=== PATIENT | female | born 1950 | race Caucasian/White ===

== ENCOUNTER → 2019-08-26 | Outpatient (CLI) | payer MEDICARE ==
[2019-08-26 13:04] LABS: Basophils % (A) 1 %; Eosinophils # (A) 0.2 k/uL (0-0.7); Eosinophils % (A) 2 %; HGB 14.1 gm/dL (11.4-16.0); Lymphocytes # (A) 2.5 k/uL (1.0-4.8); Lymphocytes % (A) 32 %; MCH 28.3 pg (25.0-35.0); MCHC 32.1 g/dL (31.0-37.0); MCV 88.3 fL (80.0-100.0); Mean Platelet Volume 7.1; Monocytes # (A) 0.4 k/uL (0-1.0); Monocytes % (A) 5 %; Neutrophils # (A) 4.7 k/uL (1.3-7.7); Neutrophils % (A) 58 %; Platelet Count 226 k/uL (150-450); RBC 4.99 m/uL (3.80-5.40)
== END | disposition home or self-care (01) ==
LOC: LABWHC1 12:27
PROVIDERS: ATTEND Otolaryngology
DX: E05.20 Thyrotoxicosis with toxic multinodular goiter without thyrotoxic crisis or storm (principal); D64.9 Anemia, unspecified
CPT/HCPCS: 36415; 83540; 85025

== ENCOUNTER → 2019-09-02 | Outpatient (CLI) | payer MEDICARE ==
--- NOTE | 2019-09-02 10:38 | FL ---
Barium swallow HISTORY: Dysphasia, Rebeca-Fan syndrome Patient was given barium to drink. 1 minute 22 seconds fluoroscopy time. 7 images were obtained. The swallowing mechanism is normal. No obstruction to flow. No evident gastroesophageal reflux or hia veto hernia. Esophageal web was not identified. Patient does not describe any symptoms during the course of the exam. IMPRESSION: Esophageal web was not identified. Consider direct visualization for better evaluation as indicated.
== END | disposition home or self-care (01) ==
LOC: RADUSWWP 07:54
PROVIDERS: ATTEND Otolaryngology
DX: R13.10 Dysphagia, unspecified (principal)
CPT/HCPCS: 74220

== ENCOUNTER → 2019-10-07 | Outpatient (CLI) | payer MEDICARE | END | disposition home or self-care (01) | LOC: RADUSWWP 07:15 | PROVIDERS: ATTEND Internal Medicine Endocrinology, Diabetes & Metabolism | DX: Z53.9 Procedure and treatment not carried out, unspecified reason (principal) ==

== ENCOUNTER → 2020-01-06 | Outpatient (CLI) | payer MEDICARE ==
--- NOTE | 2020-01-06 11:44 | MM ---
Reason for exam: clinical finding. Last mammogram was performed 4 years and 7 months ago. History: Patient is postmenopausal, has history of endometrial cancer at age 39, and history of other cancer. Family history of breast cancer in mother at age 50 and breast cancer in maternal grandmother at age 50. Physical Findings: Nurse did not find any significant physical abnormalities on exam. MG Diagnostic Mammo w CAD PATIENCE Bilateral CC and MLO view(s) were taken. Prior study comparison: May 30, 2015, mammogram. There are scattered fibroglandular densities. Benign appearing bilateral calcifications. No suspicious abnormality. No significant new findings when compared with previous films. These results were verbally communicated with the patient and result sheet given to the patient on 01/06/20. ASSESSMENT: Benign, BI-RAD 2 RECOMMENDATION: Routine screening mammogram of both breasts in 1 year.
== END | disposition home or self-care (01) ==
LOC: RADMAMWWP 10:41
PROVIDERS: ATTEND Family Medicine
DX: N95.9 Unspecified menopausal and perimenopausal disorder (principal)
CPT/HCPCS: 77066

== ENCOUNTER → 2020-01-12 | Outpatient (CLI) | payer MEDICARE ==
--- NOTE | 2020-01-12 08:44 | US ---
EXAMINATION TYPE: US thyroid st tissue head/neck DATE OF EXAM: 01/12/2020 COMPARISON: NONE CLINICAL HISTORY: R13.13 Dysphagia, pharyngeal phase. GLAND SIZE: Right Lobe: 3.8 x 1.2 x 1.1 cm Overall Parenchyma: heterogenous Left Lobe: 3.1 x 0.9 x 1.1 cm Overall Parenchyma: heterogeneous Isthmus Thickness: 0.2 cm NODULES RIGHT: # of nodules measured on right: 1 1. 1.3 X 0.9 x 1.0 cm hypoechoic solid nodule at the upper pole with well-defined margins; . This nodule is wider than tall and shows intranodular vascularity. Prior size: No previous LEFT: # of nodules measured on left: 0 ISTHMUS: # of nodules measured in the isthmus: 0 Bilateral neck scanned, no evidence of lymphadenopathy. There is markedly heterogeneous small size thyroid with 1.3 cm right-sided nodule. IMPRESSION: As above. TR 4 lesion. Follow-up ultrasound at 1, 2, 3, and 5 year interval is april rucker
== END | disposition home or self-care (01) ==
LOC: RADUSWWP 07:11
PROVIDERS: ATTEND Internal Medicine Endocrinology, Diabetes & Metabolism
DX: E04.1 Nontoxic single thyroid nodule (principal)
CPT/HCPCS: 76536

== ENCOUNTER 2020-02-04 06:52 | Day surgery (SDC) | payer MEDICARE ==
[2020-02-03 09:41] VITALS: BMI 41.0
[~2020-02-04 06:52] MED LIST: LACTATED RINGERS 1,000 ML IV SCH; LIDOCAINE 1% (10MG/ML) FOR IV START INTRADERMA PRN
[2020-02-04 07:22] LABS: Glucose,Whole Blood 144 mg/dL (75-99)
[2020-02-04 07:23] VITALS: TEMP 98.2
[2020-02-04] MEDS ORDERED: PROPOFOL 10 MG/ML 20 ML VIAL IV ONE (07:31)
[2020-02-04] MEDS ORDERED: LIDOCAINE 1% INJ 10MG/ML (20 ML MDV) ONE (07:31)
--- NOTE | 2020-02-04 08:04 | P.PCN ---
Date of Procedure: 02/04/20 Procedure(s) Performed: Brief history: Patient is a pleasant 69-year-old white female scheduled for an elective upper endoscopy as well as colonoscopy as a part of evaluation of progressive dysphagia to solids as well as prior history of colon polyps. She had multiple upper endoscopies with dilation] area for the last 10 years. The last one was in 2 years ago. Her last colonoscopy was 5 years ago. Procedure performed: Esophagooscopy with dilation Colonoscopy Preoperative diagnosis: Progressive dysphagia to solids History of colon polyps Anesthesia: MAC Procedure: After informed consent was obtained from the patient was brought into the endoscopy unit and IV sedation was administered by anesthesia under continuous monitoring. Initially upper endoscopy was done. The Olympus GF 160 video endoscope was inserted inserted into the mouth and esophagus intubated without any difficulty and was gradually advanced into the esophagus. At 20 cm from the incisors there was a tight esophageal stricture identified and the scope could not be advanced to this area. The mucosa at the stricture with normal-appearing mucosa. Esophagus with a balloon dilation using 8 mm TTS balloon for Prilosec and have significant dilated 9 mm balloon for 90 seconds. There was brisk oozing identified and a superficial mucosal tear at the site of dilation and hence further dilation was not performed. Despite the dilation was not able to advance the scope into the distal esophagus. At this time the patient tolerated the procedure well. At this time the patient continued to remain sedation. Initial digital rectal examination was normal. Olympus CF 160 video colonoscope was then inserted into the rectum and gradually advanced to the cecum without any difficulty. Careful examination was performed as the scope was gradually being withdrawn. The prep was excellent. The cecum, ascending colon, transverse colon, descending colon, sigmoid colon and rectum appeared normal. Retroflexion was performed in the rectum and no lesions were noted. Patient tolerated the procedure well. Impression: 1. Upper endoscopy revealed proximal cervical tight esophageal stricture status post balloon dilation using 8 and 9 mm TTS balloon as described 2. Colonoscopy was within normal limits with no evidence of colorectal neoplasia Recommendations: Findings of this examination were discussed with the patient as well as a family. She was advised to be on clear liquid diet. She'll be seen in office in 3-4 weeks. She can have a repeat surveillance colonoscopy in 5 years from now because of the prior history of colon polyps
[2020-02-04] MEDS ORDERED: ONDANSETRON 4 MG/2 ML VIAL ONE (08:07)
[2020-02-04] MEDS ORDERED: ONDANSETRON 4 MG/2 ML VIAL IVP ONE (08:11)
[2020-02-04 08:26] VITALS: BP 142/67; PULSE 50; RESP 18
== END 2020-02-04 08:53 | disposition home or self-care (01) ==
LOC: ORWHC2ENDO 06:52
PROVIDERS: ATTEND Internal Medicine Gastroenterology
DX: Z12.11 Encounter for screening for malignant neoplasm of colon (principal); Z86.010 Personal history of colon polyps; K22.2 Esophageal obstruction; I10 Essential (primary) hypertension; E78.5 Hyperlipidemia, unspecified; E11.9 Type 2 diabetes mellitus without complications; Z79.82 Long term (current) use of aspirin; Z79.890 Hormone replacement therapy; Z79.899 Other long term (current) drug therapy; Z88.5 Allergy status to narcotic agent; Z88.1 Allergy status to other antibiotic agents; Z88.8 Allergy status to other drugs, medicaments and biological substances; Z88.0 Allergy status to penicillin
CPT/HCPCS: 43249; J2405; J2001; J2704; C1726; G0105; 45378

== ENCOUNTER → 2020-02-22 | Outpatient (CLI) | payer MEDICARE ==
--- NOTE | 2020-02-22 18:55 | BD ---
EXAMINATION TYPE: Axial Bone Density DATE OF EXAM: 02/22/2020 COMPARISON: NONE CLINICAL HISTORY: Height: 64 Weight: 241.1 FRAX RISK QUESTIONS: Alcohol (3 or more units per day): no Family History (Parent hip fracture): no Glucocorticoids (More than 3mos): no (Ex: prednisone, prednisolone, methylprednisolone, dexamethasone, and hydrocortisone). History of Fracture in Adulthood: no Secondary Osteoporosis: 1. Type 1 Diabetes: no 2. Hyperthyroidism: no 3. Menopause before 45: yes 4. Malnutrition: no 5. Chronic liver disease: no Rheumatoid Arthritis: no Current Tobacco Use: no RISK FACTORS HISTORY OF: Family History of Osteoporosis: no Active: sometimes Diet low in dairy products/other sources of calcium: no Postmenopausal woman: age 41 Lost more than 2 inches in height since high school: no MEDICATIONS: atenolol, baby aspirin Thyroid Medications: levothyroxine How Lon months Additional History: EXAM MEASUREMENTS: Bone mineral densitometry was performed using the [employer] System. Bone mineral density as measured about the Lumbar spine is: ----- L1-L4(G/cm2): 1.280 T Score Values are as follows: ----- L2: -0.1 ----- L3: 1.4 ----- L4: 1.4 ----- L1-L4: 0.8 Bone mineral density : baseline here Bone mineral density about the R hip (g/cm2): 1.096 Bone mineral density about the L hip (g/cm2): 1.163 T Score values are as follows: -----R Neck: 0.4 -----L Neck: 0.9 -----R Total: 2.1 -----L Total: 2.5 Bone mineral density : baseline IMPRESSION: Normal (Values between +1 and -1 indicate normal bone mass). Consider repeating this study in 5 year s or sooner if there is some new clinical indication. NOTE: T-SCORE=SD OF THE YOUNG ADULT MEAN.
== END | disposition home or self-care (01) ==
LOC: RADBDWWP 07:09
PROVIDERS: ATTEND Family Medicine
DX: N95.9 Unspecified menopausal and perimenopausal disorder (principal)
CPT/HCPCS: 77080

== ENCOUNTER → 2020-02-28 | Outpatient (CLI) | payer MEDICARE ==
[2020-02-28 16:29] LABS: African American GFR (CKD) 88.4 (60.0-200.0); Albumin 4.6 g/dL (3.80-4.90); Albumin/Globulin Ratio 1.77 (1.60-3.17); Anion Gap 8.2 mmol/L (4.00-12.00); BUN/Creat Ratio 17.5 Ratio (12.00-20.00); Calcium 10.2 mg/dL (8.7-10.3); Carbon Dioxide 26.8 mmol/L (21.6-31.8); Chol/HDL Ratio 4.43; Globulin 2.6 g/dL (1.6-3.3); LDL Cholesterol,Calculated 139.2 mg/dL (0.0-131.0); Non-African American GFR(CKD) 76.3 (60.0-200.0); Potassium 4.6 mmol/L (3.5-5.5); Total Bilirubin 0.4 mg/dL (0.2-1.2); Total Protein 7.2 g/dL (6.2-8.2); VLDL Calculation 42.8 mg/dL (5.00-40.00)
[2020-02-28 16:38] LABS: T4, Free (Free Thyroxine) 0.9 ng/dL (0.80-1.80)
[2020-02-28 16:43] LABS: Urine Creatinine 73.3 mg/dL
== END | disposition home or self-care (01) ==
LOC: LABWHC1 10:59
PROVIDERS: ATTEND Internal Medicine Endocrinology, Diabetes & Metabolism
DX: E11.9 Type 2 diabetes mellitus without complications (principal); E04.1 Nontoxic single thyroid nodule
CPT/HCPCS: 36415; 80053; 80061; 82043; 82570; 84439; 84443

== ENCOUNTER → 2021-01-10 | Outpatient (CLI) | payer MEDICARE ==
--- NOTE | 2021-01-10 12:35 | FL ---
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 FINDINGS: Patient was evaluated in real-time fluoroscopy in the lateral projection while ingesting barium mixe d with liquids and solids. 1 minute 31 seconds fluoroscopy time, no images obtained. Postoperative changes are present. Alexys aspiration noted on the nectar thick liquid during swallowin g. Some reflux was noted transiently on the exam from the thoracic esophagus into the cervical esopha gibson. See dictated report from speech pathology.
== END | disposition home or self-care (01) ==
LOC: RADFLMAIN 11:01
PROVIDERS: ATTEND Family Medicine
DX: C13.0 Malignant neoplasm of postcricoid region (principal); K21.9 Gastro-esophageal reflux disease without esophagitis
CPT/HCPCS: 74230

== ENCOUNTER 2021-02-28 07:48 | Day surgery (SDC) | payer MEDICARE ==
[2021-02-26 12:22] VITALS: BMI 26.1
[2021-02-28 08:17] VITALS: RESP 16; TEMP 97.7
[2021-02-28] MEDS ORDERED: LIDOCAINE 1% INJ 10MG/ML (20 ML MDV) ONE (08:32)
[2021-02-28] MEDS ORDERED: PROPOFOL 10 MG/ML 20 ML VIAL IV ONE (08:32)
--- NOTE | 2021-02-28 08:55 | P.PCN ---
Date of Procedure: 02/28/21 Procedure(s) Performed: BRIEF HISTORY: Patient is a 70-year-old, pleasant, white female white female with history of esophageal stricture requiring multiple EGDs with dilation in the past . She is now having progressive dysphagia to solids for the last several months duration. Her last EGD with dilation was performed in January 2020. 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 PROCEDURE PERFORMED: Esophagogastroduodenoscopy with dilation . PREOPERATIVE DIAGNOSIS:. Progressive dysphagia to solids and history of esophageal stricture. Last dilation in 2019 IV sedation per anesthesia. PROCEDURE: After informed consent was obtained, the patient was brought into the endoscopy unit. IV sedation was administered by Anesthesia under continuous monitoring. Initially the Olympus GIF-140 video endoscope was inserted into the mouth. Esophagus intubated without any difficulty. in the proximal right esophagus at 50 cm from the incisors there was a tight stricture with a luminal diameter of 5 mm. Scope could not be advanced. At this time I proceeded with balloon dilation using 8-10 mm balloon sequentially for 30 seconds. Findings are was able to advance the scope through the stricture and immediately at 20 cm from the incisors there was another esophageal stricture identified. Just beyond this I was able to see another esophageal stricture along 25 cm from the incisors and both of these were dilated together using 8-10 mm TTS balloon in sequential fashion for 45 seconds. With gentle manipulation I was able to advance the scope through the strictures into the distal esophagus and was gradually advanced into the stomach and duodenum and carefully examined. The bulb and the second part of the duodenum appeared normal. The scope at this time was withdrawn to the stomach, adequately insufflated with air, and upon careful examination, mucosa of the antrum, body, cardia and the fundus appeared normal. the internal bumper of the PEG tube was initiated appeared normal. The scope was then withdrawn into the esophagus. The GE junction was located at 39 cm from the incisors. There was mucosal tear identified at the site of dilation at 25, 20 and 15 cm from the incisors at the site of strictures. Patient tolerated the procedure well. IMPRESSION: 1. Multiple esophageal tight strictures at 15, 20, 25 cm from the incisors status post balloon dilation using 8-10 mm TTS balloon as described above. 2. Normal-appearing internal bumper of the PEG tube. RECOMMENDATIONS: The findings of this examination were discussed with the patient . as well as a family. She was advised to be on a clear liquid diet today. Advance diet as tolerated. Continue to use PEG tube for nutrition. Repeat EGD with dilation as needed
[2021-02-28 09:24] VITALS: BP 154/87; PULSE 66
== END 2021-02-28 09:36 | disposition home or self-care (01) ==
LOC: ORWHC2ENDO 07:48
PROVIDERS: ATTEND Internal Medicine Gastroenterology
DX: K22.2 Esophageal obstruction (principal); Z88.1 Allergy status to other antibiotic agents; Z88.5 Allergy status to narcotic agent; Z88.0 Allergy status to penicillin; Z88.8 Allergy status to other drugs, medicaments and biological substances; I10 Essential (primary) hypertension; Z87.891 Personal history of nicotine dependence; E07.9 Disorder of thyroid, unspecified; Z79.82 Long term (current) use of aspirin; Z79.890 Hormone replacement therapy; Z79.899 Other long term (current) drug therapy; Z80.8 Family history of malignant neoplasm of other organs or systems; Z92.3 Personal history of irradiation
CPT/HCPCS: 43249; J2001; J2704; C1726

== ENCOUNTER → 2021-11-20 | Outpatient (CLI) | payer MEDICARE ==
--- NOTE | 2021-11-21 11:52 | MM ---
Reason for exam: screening (asymptomatic). Last mammogram was performed 1 year and 10 months ago. History: Patient is postmenopausal, has history of endometrial cancer at age 39, and history of other cancer. Family history of breast cancer in mother at age 50 and breast cancer in maternal grandmother at age 50. Physical Findings: A clinical breast exam by your physician is recommended on an annual basis and results should be correlated with mammographic findings. MG 3D Screening Mammo W/Cad Bilateral CC and MLO view(s) were taken. XCCL view(s) were taken of the right breast. Prior study comparison: January 06, 2020, bilateral MG diagnostic mammo w CAD PATIENCE. May 30, 2015, mammogram. Benign bilateral secretory and vascular calcifications. No significant changes when compared with prior studies. ASSESSMENT: Benign, BI-RAD 2 RECOMMENDATION: Routine screening mammogram of both breasts in 1 year.
== END | disposition home or self-care (01) ==
LOC: RADMAMWWP 06:51
PROVIDERS: ATTEND Family Medicine
DX: Z12.31 Encounter for screening mammogram for malignant neoplasm of breast (principal)
CPT/HCPCS: 77063; 77067

== ENCOUNTER → 2022-11-21 | Outpatient (CLI) | payer MEDICARE ==
--- NOTE | 2022-11-21 08:42 | MM ---
Reason for Exam: Screening (asymptomatic). Last screening mammogram was performed 12 month(s) ago. Patient History: Menarche at age 14. First Full-Term at age 23. Left ovary removed at age 39. Right ovary removed at age 39. Hysterectomy at age 39. Postmenopausal. Other cancer. Endometrial cancer, age 39. Maternal grandmother had breast cancer, age 50. Mother had breast cancer, age 50. Risk Values: Eleanor 5 year model risk: 3.3%. NCI Lifetime model risk: 9.5%. Prior Study Comparison: 05/30/2015 Screening Mammogram, Unknown. 01/06/2020 Bilateral Diagnostic Mammogram, [facility]. 11/20/2021 Bilateral Screening Mammogram, [facility]. Tissue Density: The breast tissue is heterogeneously dense. This may lower the sensitivity of mammography. Findings: Analyzed By CAD. There is no suspicious group of microcalcifications or new suspicious mass in either breast. Stable benign-appearing scattered calcifications. Overall Assessment: Benign, BI-RAD 2 Management: Screening Mammogram of both breasts in 1 year. A clinical breast exam by your physician is recommended on an annual basis and results should be correlated with mammographic findings. Electronically signed and approved by: Rishabh Lockett M.D. Radiologis
== END | disposition home or self-care (01) ==
LOC: RADMAMWWP 06:46
PROVIDERS: ATTEND Family Medicine
DX: Z12.31 Encounter for screening mammogram for malignant neoplasm of breast (principal); Z78.0 Asymptomatic menopausal state; Z80.3 Family history of malignant neoplasm of breast
CPT/HCPCS: 77063; 77067

== ENCOUNTER → 2023-03-31 | Outpatient (CLI) | payer MEDICARE ==
--- NOTE | 2023-03-31 09:19 | XR ---
EXAMINATION TYPE: XR chest 2V DATE OF EXAM: 03/31/2023 COMPARISON: None HISTORY: 72-year-old female r04.2, hemoptysis TECHNIQUE: Frontal and lateral views FINDINGS: Heart normal size. Atherosclerotic arch calcifications. Slight bilateral hilar prominence. No obvious enlargement of the central pulmonary arteries on the lateral view. No consolidation or pleural effus ion seen. A couple surgical clips at the left base of the neck. Slight accentuated mid thoracic kypho sis. IMPRESSION: Slight bilateral hilar prominence may be projectional. Consider contrast-enhanced CT to exclude the p ossibility of underlying hilar lymphadenopathy.
== END | disposition home or self-care (01) ==
LOC: RADXRMAIN 08:08
PROVIDERS: ATTEND Family Medicine
DX: R04.2 Hemoptysis (principal)
CPT/HCPCS: 71046

== ENCOUNTER → 2023-04-01 | Outpatient (CLI) | payer MEDICARE ==
[2023-04-01 12:59] LABS: African American GFR (CKD) >90 (>60 ml/min/1.73 sqM); Blood Urea Nitrogen 26 mg/dL (7-17); Non-African American GFR(CKD) >90 (>60 ml/min/1.73 sqM)
--- NOTE | 2023-04-01 13:49 | CT ---
EXAMINATION TYPE: CT chest w con CT DLP: 286 mGycm, Automated exposure control for dose reduction was used. DATE OF EXAM: 04/01/2023 1:38 PM COMPARISON: Chest radiograph from 03/31/2023, CTA chest 08/01/2020, PET/CT 07/19/2020 CLINICAL INDICATION:Female, 72 years old with history of R04.2 HEMOPTYSIS; PHH, hemoptysis TECHNIQUE: Multiple axial images were obtained through the chest following the administration of 80 c c of Isovue 300. . Coronal and sagittal reformats reviewed. FINDINGS: LUNGS/ PLEURA: No pleural effusion or pneumothorax. Right lower lobe masslike consolidation with air bronchograms measuring up to 5.3 cm. Patchy groundglass opacities identified within both lower lobes. Additional patchy groundglass opacities within the right middle lobe. AIRWAY: Patent and unremarkable.. HEART: Size within normal limits. No pericardial effusion. Mild coronary artery calcifications. Aorti c valvular calcifications. MEDIASTINUM: No evidence of adenopathy. VASCULATURE: No aortic aneurysm. Atherosclerotic calcification of the aorta and its branches. MUSCULOSKELETAL: No acute osseous abnormalities. No aggressive osseous lesion. SOFT TISSUES/LYMPH NODES: Unremarkable. LOWER NECK: No significant findings. UPPER ABDOMEN: Partial visualization of suspected PEG tube. Bilateral nonobstructing renal calculi id entified. Left renal cyst measuring up to 1.7 cm. IMPRESSION: 1. Right lower lobe masslike consolidation with air bronchograms. Additional patchy groundglass opaci ty within both lower lobes and right middle lobe findings probably relate to pneumonia in the setting of multiple groundglass opacities however primary lung malignancy is not excluded. Continued follow- up is recommended with CT chest in 3 months after treatment for pneumonia. 2. Bilateral nonobstructive renal calculi.
== END | disposition home or self-care (01) ==
LOC: RADCTMAIN 12:09
PROVIDERS: ATTEND Family Medicine
DX: N20.0 Calculus of kidney (principal); R04.2 Hemoptysis; R91.8 Other nonspecific abnormal finding of lung field
CPT/HCPCS: 82565; 84520; 71260; 36415; Q9967

== ENCOUNTER → 2023-05-22 | Outpatient (CLI) | payer MEDICARE ==
--- NOTE | 2023-05-22 12:31 | US ---
EXAMINATION TYPE: US abdomen complete DATE OF EXAM: 05/22/2023 COMPARISON: CT 2022 CLINICAL INDICATION: Female, 72 years old with history of D61.818 pancytopenia; TECHNIQUE: Multiple sonographic images of the abdomen are obtained. FINDINGS: EXAM MEASUREMENTS: Liver Length: 16.4 cm Gallbladder Wall: 0.3 cm CBD: 0.8 cm Spleen: 10.1 cm Right Kidney: 8.6 x 4.4 x 5.4 cm Left Kidney: 10.1 x 5.4 x 4.2 cm Pancreas: duct seen measuring 0.3cm upper limits of normal Liver: mildly heterogeneous Gallbladder: Extensive cholelithiasis Evidence for sonographic Booth's sign: no CBD: Mildly dilated. Spleen: visualized portions wnl, limited by overlying bowel gas Right Kidney: measures slightly small in size. No hydronephrosis. Left Kidney: 1.7 x 1.4 x 1.4cm hypoechoic area superior pole. Possibly a cyst. Internal echoes could be artifactual or could represent debris. Short interval follow-up recommended. No hydronephrosis. Upper IVC: wnl Abd Aorta: atherosclerotic changes IMPRESSION: 1. Heterogeneous hepatic parenchyma may be seen with nonspecific hepatocellular disease. 2. Extensive cholelithiasis. 3. Bile duct mildly dilated up to 8 mm. This may be chronic for the patient. Correlate with alkaline phosphatase and bilirubin levels to exclude the possibility of early biliary obstruction. 4. An indeterminate 1.7 cm cortical lesion upper pole left kidney. While a debris-filled cyst is susp ected, a small solid mass should be excluded. Recommend follow-up ultrasound and 3-6 months to reasse ss. 5. Main pancreatic duct at the upper limits of normal in caliber at 3 mm. This should also be reasses sed at follow-up. Correlate with amylase/lipase and CA-19-9 levels in the meanwhile.
== END | disposition home or self-care (01) ==
LOC: RADUSWWP 09:31
PROVIDERS: ATTEND Internal Medicine Hematology & Oncology
DX: C06.9 Malignant neoplasm of mouth, unspecified (principal); D61.818 Other pancytopenia; M12.9 Arthropathy, unspecified; K80.20 Calculus of gallbladder without cholecystitis without obstruction; K83.8 Other specified diseases of biliary tract; K86.89 Other specified diseases of pancreas; Z85.858 Personal history of malignant neoplasm of other endocrine glands
CPT/HCPCS: 76700

== ENCOUNTER → 2023-05-30 | Outpatient (CLI) | payer MEDICARE ==
[2023-05-30 16:30] LABS: African American GFR (CKD) >90 (>60 ml/min/1.73 sqM); Blood Urea Nitrogen 26 mg/dL (7-17); Non-African American GFR(CKD) >90 (>60 ml/min/1.73 sqM)
--- NOTE | 2023-05-31 17:23 | CT ---
EXAMINATION TYPE: CT chest w con DATE OF EXAM: 05/30/2023 COMPARISON: None HISTORY: hx of mouth ca. poss lung mass f/u. prior on pacs CT DLP: 143.70 mGycm, Automated exposure control for dose reduction was used. CONTRAST: Performed injected with 90 mL of Isovue 370. TECHNIQUE: Axial images were obtained at 5 mm thick sections. Reconstructed images are reviewed on [employer] computer in the coronal plane. FINDINGS: Portion of the thyroid visualized is normal. No suspicious lung nodules or focal infiltrates are present. Previous infiltrates have resolved. The consolidation in the posterior medial right lung base has resolved. No underlying masses are identifi ed at this time. No enlarged mediastinal or hilar adenopathy is evident. The ascending aorta diameter at the level o f the main pulmonary artery is 3.1 cm. The main pulmonary artery diameter at the bifurcation is 2.[address] sections are obtained through the upper abdomen. There is a 1.4 cm cyst in the anterior me dial left upper pole of the kidney. IMPRESSION: 1. Resolution previous infiltrates and right lower lobe consolidation.
== END | disposition home or self-care (01) ==
LOC: RADCTMAIN 15:41
PROVIDERS: ATTEND Internal Medicine Hematology & Oncology
DX: C06.9 Malignant neoplasm of mouth, unspecified (principal); D61.818 Other pancytopenia; M12.9 Arthropathy, unspecified; R91.8 Other nonspecific abnormal finding of lung field; Z85.858 Personal history of malignant neoplasm of other endocrine glands
CPT/HCPCS: 82565; 84520; 71260; 36415; Q9967

== ENCOUNTER → 2023-06-12 | Outpatient (CLI) | payer MEDICARE ==
--- NOTE | 2023-06-12 09:32 | US ---
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 TECHNIQUE: Multiple sonographic images of the right upper quadrant are obtained. FINDINGS: EXAM MEASUREMENTS: Liver Length: 18.4 cm Gallbladder Wall: 0.22 cm CBD: 0.7 cm Right Kidney: 10.3 x 6.2 x 4.7 cm COOK CHIEF NOTES: Exam is limited due to gas. Pancreas: Slightly limited visibility of tail. Duct on prior exam was not seen today. Liver: Appears enlarged and coarse in echotexture. Gallbladder: *Multiple hyperechoic foci with posterior shadowing seen within the gallbladder. Evidence for sonographic Booth's sign: No CBD: Dilated. Right Kidney: Renal pelvis appears prominent. IMPRESSION: 1. No evidence for acute process. 2. Cholelithiasis. 3. Common bile duct at the upper limits of normal for patient's age measuring up to 7 mm.
== END | disposition home or self-care (01) ==
LOC: RADUSWWP 08:12
PROVIDERS: ATTEND Internal Medicine Hematology & Oncology
DX: C06.9 Malignant neoplasm of mouth, unspecified (principal); K80.20 Calculus of gallbladder without cholecystitis without obstruction; D61.818 Other pancytopenia; M12.9 Arthropathy, unspecified; Z85.858 Personal history of malignant neoplasm of other endocrine glands
CPT/HCPCS: 76705

== ENCOUNTER → 2023-12-02 | Outpatient (CLI) | payer MEDICARE ==
--- NOTE | 2023-12-02 15:12 | CA ---
Transthoracic Echo Report Name: Marta Crespo Age: 73 Gender: F : 1950 Exam Date: 12/02/2023 11:19 Exam Location: [facility] Ht (in): 64 Wt (lb): 125 Ordering Physician: Terry Presley MD Attending/Referring Phys: Ronel Melo [facility] Channel Director Kaycee Hinson RDCS Procedure CPT: Indications: R60.0 LOCALIZED EDEMA Cardiac Hx: Technical Quality: Good Contrast 1: Total Dose (mL): Contrast 2: Total Dose (mL): MEASUREMENTS (Male / Female) Normal Values 2D ECHO LV Diastolic Diameter PLAX 4.0 cm 4.2 - 5.9 / 3.9 - 5.3 cm LV Systolic Diameter PLAX 2.5 cm IVS Diastolic Thickness 1.1 cm 0.6 - 1.0 / 0.6 - 0.9 cm LVPW Diastolic Thickness 1.0 cm 0.6 - 1.0 / 0.6 - 0.9 cm LV Relative Wall Thickness 0.5 RV Internal Dim ED PLAX 3.3 cm LVOT Diameter 2.2 cm LA Systolic Diameter LX 3.7 cm 3.0 - 4.0 / 2.7 - 3.8 cm LV Diastolic Volume MOD BP 68.2 cm??? 67 - 155 / 56 - 104 cm??? LV Systolic Volume MOD BP 18.4 cm??? 22 - 58 / 19 - 49 cm??? LV Ejection Fraction MOD BP 73.1 % >= 55 % LV Cardiac Index MOD BP 2054.3 cm???/min???m??? LV Diastolic Volume MOD 4C 71.4 cm??? LV Systolic Volume MOD 4C 14.9 cm??? LV Ejection Fraction MOD 4C 79.2 % LV Cardiac Index MOD 4C 2329.3 cm???/min???m??? LV Diastolic Length 4C 7.8 cm LV Systolic Length 4C 6.5 cm LV Diastolic Volume MOD 2C 65.0 cm??? LV Systolic Volume MOD 2C 16.6 cm??? LV Ejection Fraction MOD 2C 74.5 % LV Cardiac Index MOD 2C 1996.9 cm???/min???m??? LV Diastolic Length 2C 8.0 cm LV Systolic Length 2C 4.7 cm LA Volume 56.3 cm??? 18 - 58 / 22 - 52 cm??? LA Volume Index 35.1 cm???/m??? 16 - 28 cm???/m??? M-MODE Aortic Root Diameter MM 3.0 cm MV E Point Septal Separation 1.2 cm AV Cusp Separation MM 1.8 cm DOPPLER AV Peak Velocity 226.1 cm/s AV Peak Gradient 20.4 mmHg AV Mean Velocity 154.3 cm/s AV Mean Gradient 10.9 mmHg AV Velocity Time Integral 50.5 cm LVOT Peak Velocity 91.7 cm/s LVOT Peak Gradient 3.4 mmHg AV Area Cont Eq pk 1.6 cm??? MV Area PHT 2.0 cm??? Mitral E Point Velocity 57.9 cm/s Mitral A Point Velocity 86.7 cm/s Mitral E to A Ratio 0.7 MV Deceleration Time 375.2 ms FINDINGS Left Ventricle Left ventricular ejection fraction is estimated at 60-65 %. Left ventricular cavity size normal. Left ventricular wall thickness normal. No obvious regional wall motion abnormalities. Right Ventricle Mild right ventricular dilatation. Unable to estimate the right ventricular systolic pressure. Right Atrium Normal right atrial size. Left Atrium Mildly increased left atrial volume. Mitral Valve Structurally normal mitral valve. No mitral stenosis, regurgitation or prolapse. Aortic Valve Trileaflet aortic valve. Aortic valve sclerosis. Mild aortic stenosis with a peak gradient of 20 mmHg and a mean gradient of 11 mmHg. Mild aortic regurgitation. Tricuspid Valve Structurally normal tricuspid valve. No tricuspid regurgitation. Pulmonic Valve Pulmonic valve not well visualized. No pulmonic regurgitation. Pericardium No pericardial effusion. Aorta Normal size aortic root and proximal ascending aorta. CONCLUSIONS Normal LV systolic function Mildly enlarged right ventricle Mild aortic stenosis, calcific Previewed by: Dr. Endy George MD (Electronically Signed) Final Date: 02 December 2023 15:11
== END | disposition home or self-care (01) ==
LOC: RADECHMAIN 11:10
PROVIDERS: ATTEND Family Medicine
DX: I35.0 Nonrheumatic aortic (valve) stenosis (principal); R60.0 Localized edema; I51.7 Cardiomegaly
CPT/HCPCS: 93306

== ENCOUNTER → 2024-09-09 | Outpatient (CLI) | payer MEDICARE ==
--- NOTE | 2024-09-09 09:15 | US ---
EXAMINATION TYPE: US abdomen complete DATE OF EXAM: 09/09/2024 COMPARISON: 06/12/2023 CLINICAL INDICATION: Female, 74 years old with history of R10.9 UNSPECIFIED ABDOMINAL PAIN; GENERALIZ ED PAIN TECHNIQUE: Grayscale and color Doppler imaging of the abdomen was performed. FINDINGS: EXAM MEASUREMENTS: Liver Length: 17.4 cm Gallbladder Wall: 0.2 cm CBD: 8.4 mm, color Doppler imaging was utilized to isolate the common bile duct for measurement. Spleen: 10.2 cm Right Kidney: 10.2 X 4.4 X 6.2 cm Left Kidney: 11.8 X 5.9 X 5.4 cm Pancreas: 2mm duct visualized, within normal limits, otherwise appeared wnl Liver: wnl, no dilated ducts, masses or cysts. Gallbladder: Stones measuring up to 1.7 cm fill the gallbladder lumen. No abnormal wall thickening o r surrounding fluid. Evidence for sonographic Booth's sign: No CBD: Mildly dilated. Measuring 7 mm, previously. Spleen: wnl Right Kidney: wnl, No hydronephrosis, calculi or masses seen Left Kidney: Upper pole cyst measuring 2.1 cm. No hydronephrosis. Upper IVC: wnl Abd Aorta: wnl IMPRESSION: 1. The gallbladder is filled with stones measuring up to 1.7 cm. No ancillary findings of acute william cystitis. 2. Mildly dilated bile duct at 8 mm may be chronic for the patient. It measured 7 mm back in 2022. Co rrelate with alkaline phosphatase and bilirubin levels to exclude biliary obstruction. [facility], , 09/09/2024 9:13 AM
--- NOTE | 2024-09-09 12:18 | MM ---
Reason for Exam: Screening (asymptomatic). Last mammogram was performed 1 year(s) and 9 month(s) ago. Patient History: Menarche at age 14. First Full-Term at age 23. Left ovary removed at age 39. Right ovary removed at age 39. Hysterectomy at age 39. Postmenopausal. Other cancer. Endometrial cancer, age 39. Maternal grandmother had breast cancer, age 50. Mother had breast cancer, age 50. Risk Values: Eleanor 5 year model risk: 3.4%. NCI Lifetime model risk: 8.6%. Prior Study Comparison: 01/06/2020 Bilateral Diagnostic Mammogram, [facility]. 11/20/2021 Bilateral Screening Mammogram, [facility]. 11/21/2022 Bilateral MG 3D screening mammo w/cad, [facility]. Tissue Density: The breasts are heterogeneously dense, which may obscure small masses. Findings: Analyzed By CAD. Right breast: There is no suspicious group of microcalcifications or new suspicious mass. Benign-appearing calcifications right breast. Left breast: There is no suspicious group of microcalcifications or new suspicious mass. Benign-appearing calcifications left breast. Overall Assessment: Benign, BI-RAD 2 Management: Screening Mammogram of both breasts in [address] [facility] will attempt to contact patient to return for supplemental views and ultrasound if indicated. Patient should continue monthly self-breast exams. A clinical breast exam by your physician is recommended on an annual basis. This exam should not preclude additional follow-up of suspicious palpable abnormalities. Note on Eleanor scores and lifetime risk: 1. A Eleanor score greater than 3% is considered moderate risk. If this is the case, consider specialist referral to assess eligibility for a risk reducing agent. 2. If overall lifetime risk for the development of breast cancer is 20% or higher, the patient may qualify for future screening with alternating mammogram and breast MRI. [facility], , 09/09/2024 12:15 PM. Electronically signed and approved by: Haroldo Todd DO
== END | disposition home or self-care (01) ==
LOC: RADUSWWP 08:32
PROVIDERS: ATTEND Family Medicine
DX: Z12.31 Encounter for screening mammogram for malignant neoplasm of breast (principal); K80.20 Calculus of gallbladder without cholecystitis without obstruction; R92.333 Mammographic heterogeneous density, bilateral breasts; R92.1 Mammographic calcification found on diagnostic imaging of breast; K83.8 Other specified diseases of biliary tract; Z78.0 Asymptomatic menopausal state; Z80.3 Family history of malignant neoplasm of breast
CPT/HCPCS: 76700; 77063; 77067

== ENCOUNTER 2024-11-16 07:33 | Day surgery (SDC) | payer MEDICARE ==
[2024-11-15 09:29] VITALS: BMI 21.6
[2024-11-16] MEDS: IV FLUID CONTINUATION 1,000 ML IV ONE ×2 (08:10→08:32)
[2024-11-16 08:12] VITALS: TEMP 97.1
[2024-11-16] MEDS: LACTATED RINGERS 1,000 ML IV SCH (08:21)
[2024-11-16 08:29] LABS: Glucose,Whole Blood 89 mg/dL (70-110)
[2024-11-16] MEDS ORDERED: PROPOFOL 10 MG/ML 20 ML VIAL IV ONE (08:34)
--- NOTE | 2024-11-16 08:55 | P.GSHP ---
History of Present Illness H&P Date: 11/16/24 Chief Complaint: Colon cancer screening 74-year-old female known to our service. Patient due for screening colonoscopy. Last colonoscopy 5 to 7 years ago. No bowel complaints. No family history of colon cancer. Patient says her feeding tube is appearing quite worn at the distal end. 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 Past Anesthesia/Blood Transfusion Reactions: Previous Problems w/ Anesthesia, Family History of Problems w/ Anesthesia, Motion Sickness Additional Past Anesthesia/Blood Transfusion Reaction / Comment(s): brother-had "problems during heart surgery" pt not sure what, for pt-local at dentist does not last very long, "did not come out for 2 months after maxillofacialectomy surgery- was in coma for 2 months and developed pneumonia). no hx blood transfusions. mouth is very dry pt requests to please have mouth swabs to be able to be moistened post op Smoking Status: Former smoker - Past Family History Father Family Medical History: Cancer Mother Family Medical History: Cancer Additional Family Medical History / Comment(s): breast Daughter(s) Family Medical History: Pulmonary Embolus Additional Family Medical History / Comment(s): basal cell carcinoma, granddaughters -melanoma,sarcoma, Medications and Allergies Home Medications Medication Instructions Recorded Confirmed Type diphenhydrAMINE HCL [Children's 12.5 mg PO TID PRN 11/15/24 11/16/24 History Benadryl Allergy] Allergies Allergy/AdvReac Type Severity Reaction Status Date / Time codeine Allergy Rash/Hives/ Verified 11/16/24 07:53 nausea erythromycin base Allergy Rash/Hives Verified 11/16/24 07:53 Penicillins Allergy Rash/Hives Verified 11/16/24 07:53 sulfamethoxazole Allergy Swelling Verified 11/16/24 07:53 [From Bactrim] trimethoprim [From Bactrim] Allergy Swelling Verified 11/16/24 07:53 Tcdisiv-ZZP-WqK Reductase AdvReac muscle pain Verified 11/16/24 07:53 Inhibitor [Atdhenh-Zjz-Bzw Reductase Inhibitor] tropical fruit Allergy Rash/Hives Uncoded 11/16/24 07:53 Surgical - Exam Vital Signs Temp Pulse Resp BP Pulse Ox 97.1 F L 68 14 188/84 98 11/16/24 07:45 11/16/24 07:45 11/16/24 07:45 11/16/24 07:45 11/16/24 07:45 Physical exam: General: Well-developed, well-nourished HEENT: Normocephalic, sclerae nonicteric Abdomen: Nontender, nondistended, PEG tube left upper quadrant, distal 5 inches of the tube appears very warm. Proximal tube appears normal. Will cut the tube and refix the dual port feeding adapter at a shorter length. Extremities: No edema Neuro: Alert and oriented Assessment and Plan (1) Colon cancer screening Narrative/Plan: Will proceed with colonoscopy at this time. Current Visit: Yes Status: Acute Code(s): Z12.11 - ENCOUNTER FOR SCREENING FOR MALIGNANT NEOPLASM OF COLON SNOMED Code(s): 581389664
--- NOTE | 2024-11-16 08:56 | P.PCN ---
Date of Procedure: 11/16/24 Procedure(s) Performed: PREOPERATIVE DIAGNOSIS: Colon cancer screening POSTOPERATIVE DIAGNOSIS: Normal exam PROCEDURE: Colonoscopy ANESTHESIA: MAC SURGEON: Messi Mansfield M.D. SPECIMENS: None ENDOSCOPIC PROCEDURE: The patient was placed on the endoscopy table in the left decubitus position. The Olympus colonoscope was inserted into the anus and passed under direct visualization to the base of the cecum. The appendiceal orifice was visualized. From that point the scope was slowly withdrawn inspecti ng all surfaces carefully. There were no neoplastic inflammatory or polypoid lesions throughout the cecum, ascending, transverse, descending, sigmoid and rectum. There was no visible diverticulosis noted. Digital rectal examination was normal. The PEG tube catheter was cut and the dual port feeding adapter was applied at a shorter length. The patient was taken to the recovery room in stable condition per anesthesia guidelines. RECOMMENDATIONS: Resume diet. Repeat colonoscopy 10 years.
[2024-11-16 09:00] VITALS: RESP 16
[2024-11-16 09:18] VITALS: BP 126/67; PULSE 78
== END 2024-11-16 09:47 | disposition home or self-care (01) ==
LOC: ORWHC2ENDO 07:33
PROVIDERS: ATTEND Surgery
DX: Z12.11 Encounter for screening for malignant neoplasm of colon (principal); K21.9 Gastro-esophageal reflux disease without esophagitis; E11.9 Type 2 diabetes mellitus without complications; E78.5 Hyperlipidemia, unspecified; F41.9 Anxiety disorder, unspecified; I10 Essential (primary) hypertension; Z85.42 Personal history of malignant neoplasm of other parts of uterus; Z85.828 Personal history of other malignant neoplasm of skin; Z90.710 Acquired absence of both cervix and uterus; Z87.891 Personal history of nicotine dependence; Z88.8 Allergy status to other drugs, medicaments and biological substances; Z88.1 Allergy status to other antibiotic agents; Z88.0 Allergy status to penicillin; Z88.2 Allergy status to sulfonamides; Z79.899 Other long term (current) drug therapy
CPT/HCPCS: J2704; G0121; 45378

== ENCOUNTER 2025-01-29 23:53 | Inpatient (IN) | payer MEDICARE ==
--- NOTE | 2025-01-30 00:11 | ED ---
Recheck HPI - General Chief Complaint: Shortness of Breath Stated Complaint: Transfer Time Seen by Provider: 01/30/25 00:01 Source: patient, RN notes reviewed, old records reviewed, Caregiver Mode of arrival: EMS Limitations: no limitations - History of Present Illness Initial Comments: This is a 74 female excepted in transfer from [facility] for bilateral pneumonia, patient had back pain initially, maybe some shortness of breath but nothing significant no no fevers travel history or sick contact MD Complaint: needs IV antibiotics -: days(s) Returns Today for: needs IV antibiotics Symptoms Since Prior Visit: no new symptoms Associated Symptoms: none Treatments Prior to Arrival: Given Antibiotics on - Related Data Previous Rx's Medication Instructions Recorded Azithromycin [Zithromax] 500 mg PO DAILY 3 Days #3 tab 01/31/25 cefuroxime axetiL [Ceftin] 500 mg PO BID 5 Days #10 tab 01/31/25 Allergies Allergy/AdvReac Type Severity Reaction Status Date / Time codeine Allergy Rash/Hives/ Verified 01/30/25 11:13 nausea erythromycin base Allergy Rash/Hives Verified 01/30/25 11:13 Penicillins Allergy Rash/Hives Verified 01/30/25 11:13 sulfamethoxazole Allergy Swelling Verified 01/30/25 11:13 [From Bactrim] trimethoprim [From Bactrim] Allergy Swelling Verified 01/30/25 11:13 Zvjjllf-XGL-MjG Reductase AdvReac muscle pain Verified 01/30/25 11:13 Inhibitor [Znjpeol-Xes-Scj Reductase Inhibitor] tropical fruit Allergy Rash/Hives Uncoded 01/30/25 11:13 Review of Systems ROS Statement: Those systems with pertinent positive or pertinent negative responses have been documented in the HPI. ROS Other: All systems not noted in ROS Statement are negative. 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 Past Anesthesia/Blood Transfusion Reactions: Previous Problems w/ Anesthesia, Family History of Problems w/ Anesthesia, Motion Sickness Additional Past Anesthesia/Blood Transfusion Reaction / Comment(s): brother-had "problems during heart surgery" pt not sure what, for pt-local at dentist does not last very long, "did not come out for 2 months after maxillofacialectomy surgery- was in coma for 2 months and developed pneumonia). no hx blood transfusions. mouth is very dry pt requests to please have mouth swabs to be able to be moistened post op Past Psychological History: Anxiety Smoking Status: Former smoker - Past Family History Father Family Medical History: Cancer Mother Family Medical History: Cancer Additional Family Medical History / Comment(s): breast Daughter(s) Family Medical History: Pulmonary Embolus Additional Family Medical History / Comment(s): basal cell carcinoma, granddaughters -melanoma,sarcoma, General Exam Limitations: no limitations General appearance: alert, in no apparent distress Head exam: Present: atraumatic, normocephalic, normal inspection Eye exam: Present: normal appearance, PERRL, EOMI. Absent: scleral icterus, conjunctival injection, periorbital swelling ENT exam: Present: normal exam, mucous membranes moist Neck exam: Present: normal inspection. Absent: tenderness, meningismus, lymphadenopathy Respiratory exam: Present: normal lung sounds bilaterally. Absent: respiratory distress, wheezes, rales, rhonchi, stridor Cardiovascular Exam: Present: regular rate, normal rhythm, normal heart sounds. Absent: systolic murmur, diastolic murmur, rubs, gallop, clicks GI/Abdominal exam: Present: soft, normal bowel sounds. Absent: distended, tenderness, guarding, rebound, rigid Extremities exam: Present: normal inspection, full ROM, normal capillary refill. Absent: tenderness, pedal edema, joint swelling, calf tenderness Back exam: Present: normal inspection Neurological exam: Present: alert, oriented X3, CN II-XII intact Psychiatric exam: Present: normal affect, normal mood Skin exam: Present: warm, dry, intact, normal color. Absent: rash Course Vital Signs 01/29/25 01/30/25 01/30/25 23:54 00:14 02:35 Temperature 97.4 F L Pulse Rate 71 55 L Respiratory 16 18 16 Rate Blood Pressure 114/68 96/53 O2 Sat by Pulse 99 96 Oximetry 01/30/25 01/30/25 01/30/25 04:23 07:26 10:58 Temperature Pulse Rate 63 70 Respiratory 16 18 20 Rate Blood Pressure 131/69 136/67 O2 Sat by Pulse 100 Oximetry 01/30/25 01/30/25 01/30/25 12:10 12:22 16:09 Temperature Pulse Rate 70 70 68 Respiratory 18 Rate Blood Pressure 105/58 O2 Sat by Pulse 99 Oximetry - Reevaluation(s) Reevaluation #1: 01/30/25 00:29 Medical records reviewed Transfer paperwork is reviewed including pneumonia on CT scan no PE no other causes back pain found, elevated white blood cell count Reevaluation #2: 01/30/25 00:29 Patient is in no respiratory distress here in the ER has no complaints Reevaluation #3: 01/30/25 00:29 Patient informed of results questions answered Reevaluation #4: Was pt. sent in by a medical professional or institution ([facility], [employer], urgent care, hospital, or alf...) When possible be specific @ -no Did you speak to anyone other than the patient for history (EMS, parent, family, police, friend...)? What history was obtained from this source @ -no Did you review nursing and triage notes (agree or disagree)? Why? @ -agree Are old charts reviewed (outside hosp., previous admission, EMS record, old EKG, old radiological studies, urgent care reports/EKG's, alf records)? Report findings @ -yes Differential Diagnosis (chest pain, altered mental status, abdominal pain women, abdominal pain men, vaginal bleeding, weakness, fever, dyspnea, syncope, headache, dizziness, GI bleed, back pain, seizure, CVA, palpatations, mental health, musculoskeletal)? @ -prior EKG interpreted by me (3pts min.). @ -no X-rays interpreted by me (1pt min.). @ -yes bilateral pneumonia CT interpreted by me (1pt min.). @ -no U/S interpreted by me (1pt. min.). @ -no What testing was considered but not performed or refused? (CT, X-rays, U/S, labs)? Why? @ -none What meds were considered but not given or refused? Why? @ -none Did you discuss the management of the patient with other professionals (professionals i.e. DrJosefina, PA, [employer], lab, RT, psych nurse, social media coordinator, hat steamer, teacher, first officer, case preparer and liner)? Give summary @ -no Was smoking cessation discussed for >3mins.? @ -no Was critical care preformed (if so, how long)? @ -yes31 Were there social determinants of health that impacted care today? How? (Homelessness, low income, unemployed, alcoholism, drug addiction, transportation, low edu. Level, literacy, decrease access to med. care, halfway, rehab)? @ -none Was there de-escalation of care discussed even if they declined (Discuss DNR or withdrawal of care, Hospice)? DNR status @ -no What co-morbidities impacted this encounter? (DM, HTN, Smoking, COPD, CAD, Cancer, CVA, ARF, Chemo, Hep., AIDS, mental health diagnosis, sleep apnea, morbid obesity)? @ -none Was patient admitted / discharged? Hospital course, mention meds given and route, prescriptions, significant lab abnormalities, going to OR and other pertinent info. @ - 74 female excepted in transfer from outside facility for bilateral pneumonia and will admit for IV antibiotics Admitted Undiagnosed new problem with uncertain prognosis? @ -no Drug Therapy requiring intensive monitoring for toxicity (Heparin, Nitro, Insulin, Cardizem)? @ -no Were any procedures done? @ -no Diagnosis/symptom? @ -Bilateral pneumonia Acute, or Chronic, or Acute on Chronic? @ -Acute Uncomplicated (without systemic symptoms) or Complicated (systemic symptoms)? @ -Complicated Side effects of treatment? @ -no Exacerbation, Progression, or Severe Exacerbation? @ -exacerbation Poses a threat to life or bodily function? How? (Chest pain, [place], [place], pneumonia, PE, COPD, DKA, ARF, appy, cholecystitis, CVA, Diverticulitis, Homicidal, Suicidal, threat to staff... and all critical care pts) @ -yes significant pneumonia Reevaluation #5: Differential Back Pain: Strain, zoster, cauda equina syndrome, epidural abscess, vertebral osteomyelitis, discitis, fracture, subluxation, disc herniation, DJD, spinal stenosis, dissection, AAA, pancreatitis, peptic ulcer disease, pyelonephritis, kidney stone, this is not meant to be an all-inclusive list. - Consultations Consultation #1: Spoke with [facility] who agrees to admit this patient Medical Decision Making - Medical Decision Making 74 female excepted in transfer from outside facility for bilateral pneumonia and will admit for IV antibiotics - Lab Data Result diagrams: 01/30/25 12:04 01/31/25 03:10 - Radiology Data Radiology results: report reviewed (CTA chest CT abdomen pelvis positive bilateral pneumonia) Disposition Clinical Impression: Bilateral pneumonia Disposition: ADMITTED IP TO THIS HOSP Condition: Fair Is patient prescribed a controlled substance at d/c from ED?: No Time of Disposition: 00:30
[2025-01-30] MEDS ORDERED: PNEUMONIA PROTOCOL UTILIZED 1 EACH MISC PO PRN (00:27)
[2025-01-30] MEDS: LEVOFLOXACIN 500MG-D5W PMX 500 MG in DEXTROSE/WATER 1 100ML.BAG IVPB ONE (02:36)
[2025-01-30] MEDS ORDERED: ONDANSETRON 4 MG/2 ML VIAL IVP PRN (09:21)
[2025-01-30] MEDS: IPRATROPIUM-ALBUTEROL 3 ML NEB INHALATION PRN (12:07)
[2025-01-30 12:37] LABS: Basophils # (A) 0.01 10*3/uL (0.00-0.10); Basophils % (A) 0.1 %; HCT 33.5 % (37.2-46.3); HGB 11.3 g/dL (12.0-15.0); Lymphocytes # (A) 0.19 10*3/uL (0.90-5.00); Lymphocytes % (A) 2.3 %; MCH 31.3 pg (27.0-32.0); MCHC 33.7 g/dL (32.0-37.0); MCV 92.8 fL (80.0-97.0); Mean Platelet Volume 12.8 fL (9.5-12.2); Monocytes # (A) 0.45 10*3/uL (0.20-1.00); Monocytes % (A) 5.3 %; Neutrophils # (A) 7.76 10*3/uL (1.80-7.70); Neutrophils % (A) 92.2 %; Platelet Count 106 10*3/uL (140-440); RBC 3.61 10*6/uL (4.10-5.20); RDW 13.2 % (11.5-14.5); WBC 8.42 10*3/uL (4.50-10.00)
[2025-01-30 12:49] LABS: ALT 20 U/L (4-34); AST 23 U/L (14-36); African American GFR (CKD) >90 (>60 ml/min/1.73 sqM); Albumin 3.6 g/dL (3.5-5.0); Albumin/Globulin Ratio 1.3; Alkaline Phosphatase 101 U/L (38-126); Anion Gap 11 mmol/L; Blood Urea Nitrogen 22 mg/dL (7-17); Calcium 9.5 mg/dL (8.4-10.2); Carbon Dioxide 24 mmol/L (22-30); Chloride 94 mmol/L (98-107); Globulin 2.8 g/dL; Glucose 139 mg/dL (74-99); Non-African American GFR(CKD) >90 (>60 ml/min/1.73 sqM); Potassium 4.4 mmol/L (3.5-5.1); Sodium 129 mmol/L (137-145); Total Bilirubin 0.5 mg/dL (0.2-1.3); Total Protein 6.4 g/dL (6.3-8.2)
[2025-01-30] MEDS ORDERED: DEXTROSE 50% SYRINGE 50 ML IVP PRN ×2 (16:21)
--- NOTE | 2025-01-30 16:25 | P.HPIM ---
History of Present Illness H&P Date: 01/30/25 Chief Complaint: Shortness of breath Patient is a 74-year-old female with a past medical history of hypertension, hyperlipidemia, diabetes type 2 no longer after weight loss, GERD, history of SCC roof of mouth s/p radiation, no chemo, Bechets autoimmune disease, uterine cancer, anxiety and other medical problems initially presented to [facility] with complaints of back pain. Denied any flank pain. Denied any dysuria or hematuria. Patient had CT done which showed bilateral lower lobe pneumonia. She also has some shortness of breath. Denied any fever or chills. No cough or sputum production. Denied any sick contacts. No recent travel. Laboratory data showed WBC 8.4 hemoglobin 11.3 and platelets 106 Sodium 129 potassium 4.4, chloride 94 bicarb is 24 BUN 2020 creatinine 0.49 and blood sugar 139. Liver enzymes are not evaluated. Review of Systems Constitutional: Patient denies any fever or chills . No generalized weakness or weight loss. Abdomen: Patient denied nausea vomiting and diarrhea and abdominal pain. Cardiovascular: Patient denies any chest pain or short of breath no palpitations. Respiratory: patient denied any cough or sputum production. Mild shortness of breath Neurologic: Patient denied any numbness or tingling. no headache. Musculoskeletal: Patient denies any complaints of joint swelling or deformity. Skin: Negative Psychiatric: Negative Endocrine: No heat or cold intolerance. No recent weight gain. Genitourinary: No dysuria or hematuria. 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 Past Anesthesia/Blood Transfusion Reactions: Previous Problems w/ Anesthesia, Family History of Problems w/ Anesthesia, Motion Sickness Additional Past Anesthesia/Blood Transfusion Reaction / Comment(s): brother-had "problems during heart surgery" pt not sure what, for pt-local at dentist does not last very long, "did not come out for 2 months after maxillofacialectomy surgery- was in coma for 2 months and developed pneumonia). no hx blood norman sfusions. mouth is very dry pt requests to please have mouth swabs to be able to be moistened post op Past Psychological History: Anxiety Smoking Status: Former smoker - Past Family History Father Family Medical History: Cancer Mother Family Medical History: Cancer Additional Family Medical History / Comment(s): breast Daughter(s) Family Medical History: Pulmonary Embolus Additional Family Medical History / Comment(s): basal cell carcinoma, granddaughters -melanoma,sarcoma, Medications and Allergies Home Medications Medication Instructions Recorded Confirmed Type No Known Home Medications 01/30/25 01/30/25 History Allergies Allergy/AdvReac Type Severity Reaction Status Date / Time codeine Allergy Rash/Hives/ Verified 01/30/25 11:13 nausea erythromycin base Allergy Rash/Hives Verified 01/30/25 11:13 Penicillins Allergy Rash/Hives Verified 01/30/25 11:13 sulfamethoxazole Allergy Swelling Verified 01/30/25 11:13 [From Bactrim] trimethoprim [From Bactrim] Allergy Swelling Verified 01/30/25 11:13 Gzmutgw-OKY-YyM Reductase AdvReac muscle pain Verified 01/30/25 11:13 Inhibitor [Hmsdapn-Jsm-Uhb Reductase Inhibitor] tropical fruit Allergy Rash/Hives Uncoded 01/30/25 11:13 Physical Exam Vitals: Vital Signs Temp Pulse Resp BP Pulse Ox 01/30/25 10:58 70 20 136/67 100 01/30/25 07:26 18 01/30/25 04:23 63 16 131/69 01/30/25 02:35 55 L 16 96/53 96 01/30/25 00:14 18 01/29/25 23:54 97.4 F L 71 16 114/68 99 Intake and Output 01/29/25 01/30/25 01/30/25 22:59 06:59 14:59 Other: Weight 55.792 kg PHYSICAL EXAMINATION: Patient is lying in the bed comfortably, no acute distress, awake alert and or iented.. HEENT: Normocephalic. Neck is supple. Pupils reactive. Nostrils clear. Oral cavity is moist. Neck reveals no JVD, carotid bruits, or thyromegaly. CHEST EXAMINATION: Trachea is central. Symmetrical expansion. Lung iniguez clear to auscultation and percussion. CARDIAC: Normal S1, S2 with no gallops. No murmurs ABDOMEN: Soft. Bowel sounds normal. No organomegaly. No abdominal bruits. Extremities: reveal no edema. No clubbing or cyanosis Neurologically awake, alert, oriented x3 with well-coordinated movements. No focal deficits noted Skin: No rash or skin lesions. Psychiatric: Coperative. Nonsuicidal Musculoskeletal: No joint swelling or deformity. Normal range of motion. Results CBC & Chem 7: 01/30/25 12:04 01/30/25 12:04 Thrombosis Risk Factor Assmnt - DVT/VTE Prophylaxis DVT/VTE Prophylaxis: Pharmacologic Prophylaxis ordered Assessment and Plan Assessment: Bilateral bibasilar pneumonia Low back pain Hypertension Hyperlipidemia History of diabetes type 2 History of SCC roof of mouth s/p radiation. No chemo Bechets disease Anxiety DVT prophylaxis heparin subcu Plan: Patient will be continued on IV hydration with normal saline at 75 cc/h. Continue with antibiotics ceftriaxone and azithromycin. Obtain urinalysis. Follow-up culture reports. Follow-up procalcitonin level. Continue with home medications and pain management. Anticipate discharge in the next 24 hours. Time with Patient: Greater than 30
[2025-01-30] MEDS: INSULIN LISPRO (HumaLOG) 100 UNIT/ML 10 mL VL SQ SCH (19:19)
[2025-01-30 20:23] LABS: Appearance,Urine Clear (Clear); Bilirubin,Urine Negative (Negative); Blood,Urine Negative (Negative); Color,Urine Colorless; Glucose,Urine (UA) Negative (Negative); Ketones,Urine Negative (Negative); Leukocyte Esterase,Urine Negative (Negative); Nitrite,Urine Negative (Negative); Protein,Urine Negative (Negative); Specific Gravity,Urine 1.005 (1.001-1.035); Urobilinogen,Urine <2.0 mg/dL (<2.0)
[2025-01-30] MEDS: SODIUM CHLORIDE 0.9% 1,000 ML IV SCH (21:37)
[2025-01-30] MEDS: HEPARIN SODIUM,PORCINE 5,000 UNIT/ML 1 ML VIAL SQ SCH (23:35)
[2025-01-31] MEDS: AZITHROMYCIN 500 MG TAB PO SCH (08:16)
--- NOTE | 2025-01-31 08:29 | XR ---
EXAMINATION TYPE: XR chest 2V DATE OF EXAM: 01/31/2025 6:48 AM COMPARISON: 03/31/2023 CLINICAL INDICATION: Female, 74 years old with history of pneumonia, TECHNIQUE: XR chest 2V view(s) obtained. FINDINGS: The heart size is normal. The pulmonary vasculature is normal. The lungs are clear. IMPRESSION: 1. No acute pulmonary process. [facility], , 01/31/2025 8:26 AM
[2025-01-31 10:44] LABS: BUN/Creat Ratio 49.67 Ratio (12.00-20.00); Blood Urea Nitrogen 29.8 mg/dL (9.0-27.0); Calcium 8.9 mg/dL (8.7-10.3); Carbon Dioxide 25.6 mmol/L (21.6-31.8); Chloride 102 mmol/L (96-109); Glucose 83 mg/dL (70-110); Potassium 4.2 mmol/L (3.5-5.5); Sodium 140 mmol/L (135-145)
[2025-01-31 14:56] VITALS: BP 132/71; PULSE 71; RESP 17; TEMP 97.9
[2025-01-31 15:27] VITALS: BMI 21.1
--- NOTE | 2025-02-04 14:28 | CDI ---
Your patient has an abnormal lab value: Na 129 on 01/30 per H&P. Please clarify if there is an additional diagnosis and/or clinical significance related to this value. 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 Denied any flank pain. Denied any dysuria or hematuria. Patient had CT done which showed bilateral lower lobe pneumonia. She also has some shortness of breath. Denied any fever or chills. No cough or sputum production. Denied any sick contacts. No recent travel. Clinical indicators: Na 129 Treatment: per H&P: Patient will be continued on IV hydration with normal saline at 75 cc/h. Is there an additional diagnosis and/or clinical significance related to the above lab result/information? [ x ] Hyponatremia [ ] No additional diagnosis/Not clinically significant [ ] Other, please specify [ ] Unable to determine MTDD
--- NOTE | 2025-02-08 10:03 | P.DS ---
Providers Date of admission: 01/30/25 00:28 Expected date of discharge: 01/31/25 Attending physician: Steven Jack Primary care physician: Terry Presley Hospital Course: Final diagnosis Bilateral bibasilar pneumonia, present on admission Low back pain Hypertension Hyperlipidemia History of diabetes type 2 History of SCC roof of mouth s/p radiation. No chemo Bechets disease Anxiety DVT prophylaxis heparin subcu Moderate calorie protein malnutrition with a BMI of 21.1, maintained on PEG tube feeds GI prophylaxis DVT prophylaxis Full code Discharge disposition Patient is being discharged in a stable condition with guarded prognosis to home. Patient will follow-up with Dr. Presley in the outpatient setting upon discharge. Patient is to continue with oral liquid antibiotics and close outpatient follow-up with primary care provider as scheduled. Total time taken is greater than 35 minutes. Hospital course This is a 74-year-old female who was recently admitted with bilateral pneumonia, present on admission, concerns for aspiration as patient does have PEG tube with tube feeds. Patient being monitored on IV antibiotics and will transition to oral antibiotics on discharge as patient reports to feeling much better and wou ld like to go home. Patient has been instructed to follow-up with primary care provider this week. Continue with aspiration precautions with head of the bed elevated 35 to 45 degrees at all times and monitoring residuals closely. Patient will continue liquid antibiotics on discharge. Currently no reports of chest pain, shortness of breath, or palpitations. Patient is afebrile. No reports of nausea or vomiting and patient is tolerating tube feeds. Patient will be discharged home today. Guarded prognosis Physical exam: Gen: This is a 74-year-old female who is awake, alert and oriented x 3, thin built, elderly appearing HEENT: Head is atraumatic, normocephalic. Pupils equal, round. Sclerae is anicteric. NECK: Supple. No JVD. No lymphadenopathy. No thyromegaly. LUNGS: Diminished breath sounds bilaterally otherwise clear to auscultation. No wheezes or rhonchi. No intercostal retractions. HEART: Regular rate and rhythm. No murmur. ABDOMEN: Soft. Thin. Bowel sounds are present. No masses. No tenderness. EXTREMITIES: No pedal edema. No calf tenderness. NEUROLOGICAL: Patient is awake, alert and oriented x3. Cranial nerves 2 through 12 are grossly intact. Please refer to medication reconciliation sheet for a list of medications. The impression and plan of care has been dictated by Migdalia Arriaza, Nurse Practitioner as directed. Dr. Angel MD I have performed a history and examination and MDM of this patient, discussed the same with the dictator, and agree with the dictator's assessment and plan as written ,documented as a scribe. Based on total visit time, I have performed more than 50% of the visit. Patient Condition at Discharge: Fair Plan - Discharge Summary Discharge Rx Participant: Yes New Discharge Prescriptions: New Azithromycin [Zithromax] 500 mg PO DAILY 3 Days #3 tab cefuroxime axetiL [Ceftin] 500 mg PO BID 5 Days #10 tab Discharge Medication List Azithromycin [Zithromax] 500 mg PO DAILY 3 Days #3 tab 01/31/25 [Rx] cefuroxime axetiL [Ceftin] 500 mg PO BID 5 Days #10 tab 01/31/25 [Rx] Follow up Appointment(s)/Referral(s): Terry Presley MD [Primary Care Provider] - 1-2 days Activity/Diet/Wound Care/Special Instructions: Activity limited until follow-up Follow-up with primary care provider on discharge Continue taking antibiotics on discharge until finished Continue with aspiration precautions and tube feedings and monitor for residuals closely Discharge Disposition: HOME WITH HOME HEALTH SERVICES
== END 2025-01-31 17:31 | disposition home health service (06) | DRG 194 ==
LOC: EC 23:53 → 4SSUR 01-30 00:28
PROVIDERS: ADMIT Hospitalist; ATTEND Hospitalist
DX: J18.9 Pneumonia, unspecified organism (principal); E44.0 Moderate protein-calorie malnutrition; E11.9 Type 2 diabetes mellitus without complications; I10 Essential (primary) hypertension; E87.1 Hypo-osmolality and hyponatremia; Z93.1 Gastrostomy status; Z68.21 Body mass index [BMI] 21.0-21.9, adult; M54.50 Low back pain, unspecified; K21.9 Gastro-esophageal reflux disease without esophagitis; E78.5 Hyperlipidemia, unspecified; M54.9 Dorsalgia, unspecified; F41.9 Anxiety disorder, unspecified; Z85.42 Personal history of malignant neoplasm of other parts of uterus; Z85.828 Personal history of other malignant neoplasm of skin; Z87.891 Personal history of nicotine dependence; Z90.710 Acquired absence of both cervix and uterus; Z92.3 Personal history of irradiation; Z98.51 Tubal ligation status; Z88.5 Allergy status to narcotic agent; Z88.1 Allergy status to other antibiotic agents; Z88.0 Allergy status to penicillin; Z88.2 Allergy status to sulfonamides; Z88.8 Allergy status to other drugs, medicaments and biological substances
CPT/HCPCS: 71046; 80048; 80053; 81003; 82607; 82747; 83036; 84145; 84439; 84443; 85025; 87070; 87205; 87449; 94640; 94760; 96365; 96366; 96367; 99285